=== PATIENT | male | born 1955 | race Caucasian/White ===

== ENCOUNTER 2018-04-20 08:58 | Emergency (ER) | payer OTHER ==
[~2018-04-20] VITALS: Ht 172.7 cm; Wt 77.1 kg
[2018-04-20] MEDS ORDERED: BACITRACIN-POLYMYXIN B TOPICAL OINT UD TOP ONE ×2 (10:55→11:00)
[2018-04-20] MEDS ORDERED: traMADol HCL 50 MG TAB PO ONE (11:00)
[2018-04-20 11:33] VITALS: BP 176/98
== END 2018-04-20 12:15 | disposition home or self-care (01) ==
LOC: EDBD 08:58 → ER 08:58
DX: S02.2XXA Fracture of nasal bones, initial encounter for closed fracture (principal); S01.83XA Puncture wound without foreign body of other part of head, initial encounter; S00.03XA Contusion of scalp, initial encounter; S00.83XA Contusion of other part of head, initial encounter; Y08.89XA Assault by other specified means, initial encounter; Y93.89 Activity, other specified; Y99.0 Civilian activity done for income or pay; Y92.89 Other specified places as the place of occurrence of the external cause
CPT/HCPCS: 70450; 70486